=== PATIENT | male | born 1955 | race African-American/Black ===

== ENCOUNTER 2018-10-27 18:22 | Emergency (ER) | payer OTHER ==
[~2018-10-27] VITALS: Wt 79.6 kg
[2018-10-27] MEDS ORDERED: KETOROLAC 15 MG INJ IV STA (19:54)
[2018-10-27] MEDS ORDERED: SOD CHLORIDE 0.9% 500 ML IV STA (19:54)
[2018-10-27 22:10] VITALS: BP 138/81; PULSE 87; RESP 16
--- NOTE | 2018-10-27 22:49 | ERD ---
ER Documentation Chief Complaint Chief Complaint bib ra from home for abd. pain with urinary retention HPI This is a 63-year-old man complaining of suprapubic abdominal pain and distention beginning a few hours prior to arrival. Patient denies fevers or chills, no flank pain, no complaints of chest pain or shortness of breath. Nando contreras started using NSAIDs and cyclobenzaprine for recent sciatic back pain, but these are the only new medications. He denies previous episodes of urinary retention, denies hematuria, no weight loss, no vomiting or diarrhea. ROS All systems reviewed and are negative except as per history of present illness. Allergies Allergies: Coded Allergies: No Known Allergy (Unverified , 10/27/18) PMhx/Soc BPH Medical and Surgical Hx: pt denies Medical Hx, pt denies Surgical Hx History of Surgery: No Anesthesia Reaction: No Hx Neurological Disorder: No Hx Respiratory Disorders: No Hx Cardiac Disorders: No Hx Psychiatric Problems: No Hx Miscellaneous Medical Probl: No Hx Alcohol Use: Yes (OOC) Hx Substance Use: Yes (MJ) Hx Tobacco Use: No Smoking Status: Former smoker FmHx Family History: No diabetes Physical Exam Vitals Vital Signs Date Temp Pulse Resp B/P (MAP) Pulse Ox O2 O2 Flow FiO2 Time Delivery Rate 10/27/18 98.6 89 19 149/82 100 18:53 (104) Physical Exam Const: No acute distress, afebrile Head: Atraumatic Eyes: Normal Conjunctiva ENT: Normal External Ears, Nose and Mouth. Neck: Full range of motion. No meningismus. Resp: Clear to auscultation bilaterally Cardio: Regular rate and rhythm, no murmurs Abd: Soft, non tender, non distended. Positive suprapubic distention and tenderness to touch, no McBurney's point tenderness, no guarding or rigidity Skin: No petechiae or rashes Back: No midline or flank tenderness Ext: No cyanosis, or edema Neur: Awake and alert x3, no focal deficits or facial asymmetry Psych: Normal Mood and Affect Result Diagram: 10/27/18202910/27/182029 Results 24 hrs Laboratory Tests Test 10/27/18 20:30 White Blood Count 9.6 10^3/ul Red Blood Count 4.69 10^6/ul Hemoglobin 13.7 g/dl Hematocrit 40.7 % Mean Corpuscular Volume 86.8 fl Mean Corpuscular Hemoglobin 29.2 pg Mean Corpuscular Hemoglobin Concent 33.7 g/dl Red Cell Distribution Width 12.3 % Platelet Count 389 10^3/UL Mean Platelet Volume 9.1 fl Immature Granulocytes % 0.500 % Neutrophils % 73.9 % Lymphocytes % 17.5 % Monocytes % 7.7 % Eosinophils % 0.2 % Basophils % 0.2 % Nucleated Red Blood Cells % 0.0 /100WBC Immature Granulocytes # 0.050 10^3/ul Neutrophils # 7.1 10^3/ul Lymphocytes # 1.7 10^3/ul Monocytes # 0.7 10^3/ul Eosinophils # 0.0 10^3/ul Basophils # 0.0 10^3/ul Nucleated Red Blood Cells # 0.0 10^3/ul Urine Color STRAW Urine Clarity CLEAR Urine pH 6.0 Urine Specific [place] 1.003 Urine Ketones NEGATIVE mg/dL Urine Nitrite NEGATIVE mg/dL Urine Bilirubin NEGATIVE mg/dL Urine Urobilinogen NEGATIVE mg/dL Urine Leukocyte Esterase NEGATIVE Anitha/ul Urine Microscopic RBC 15 /HPF Urine Microscopic WBC 0 /HPF Urine Bacteria FEW /HPF Urine Hemoglobin 3+ mg/dL Urine Glucose NEGATIVE mg/dL Urine Total Protein NEGATIVE mg/dl Sodium Level 138 mmol/L Potassium Level 5.0 mmol/L Chloride Level 99 mmol/L Carbon Dioxide Level 28 mmol/L Anion Gap 11 Blood Urea Nitrogen 18 mg/dl Creatinine 1.60 mg/dl Est Glomerular Filtrat Rate mL/min 44 mL/min Glucose Level 104 mg/dl Calcium Level 10.0 mg/dl Total Bilirubin 0.3 mg/dl Direct Bilirubin 0.00 mg/dl Indirect Bilirubin 0.3 mg/dl Aspartate Amino Transf (AST/SGOT) 27 IU/L Alanine Aminotransferase (ALT/SGPT) 37 IU/L Alkaline Phosphatase 68 IU/L Total Protein 7.4 g/dl Albumin 4.4 g/dl Globulin 3.00 g/dl Albumin/Globulin Ratio 1.46 Lipase 460 U/L Current Medications Medications Dose Sig/David Start Time Status Last (Trade) Ordered Route PRN Stop Time Admin Dose Reason Admin Sodium 500 ml @ Q1H STAT 10/27/18 DC 10/27/18 Chloride 500 mls/hr IV 19:54 20:48 10/27/18 20:53 Ketorolac 15 mg ONCE STAT 10/27/18 DC 10/27/18 Tromethamine IV 19:54 20:48 (Toradol) 10/27/18 19:55 Procedures/MDM IV line was established patient was placed on cardiac care nurse rhythm strip r evealed a sinus rhythm at about 80 bpm with upright P and T waves. Patient was afebrile. Mendez catheter was placed and about 1 L of clear urine output was obtained, patient's pain immediately resolved and suprapubic distention resolved completely. I administered Toradol 15 mg IV x1 and 500 cc normal saline IV x1 CBC was normal, electrolytes revealed elevated creatinine consistent with recent urinary retention, liver function tests were normal, urinalysis was negative for infection Patient has no signs or symptoms of urinary tract infection and I will defer antibiotics, patient preferred to have the Mendez catheter removed. I removed the catheter and patient agreed to follow-up with his PMD tomorrow for reevaluation. Differential diagnoses considered, included but not limited to acute coronary syndrome, pulmonary embolism, aortic dissection, abdominal aortic aneurysm, sepsis, stroke, meningitis, encephalitis, pneumonia, appendicitis, cholecystitis, bowel obstruction, pyelonephritis, nephrolithiasis, cystitis, as well as metabolic, hematologic, and electrolyte abnormalities. As well as abscess, cellulitis, fractures, and dislocations. Patient feels much better at this time, and vital signs are normal, symptoms have improved. I did give strict instructions to return to the ED if symptoms continue or worsen, patient will otherwise follow-up with primary care physician. Patient understood instructions and agreed to plan. Disclaimer: Inadvertent spelling and grammatical errors are likely due to EHR/dictation software use and do not reflect on the overall quality of patient care. Also, please note that the electronic time recorded on this note does not necessarily reflect the actual time of the patient encounter. Departure Diagnosis: Primary Impression: Acute urinary retention Additional Impression: BPH (benign prostatic hyperplasia) Lower urinary tract symptom presence: symptoms present Lower urinary tract symptom detail: incomplete bladder emptying Qualified Codes: N40.1 - Benign prostatic hyperplasia with lower urinary tract symptoms; R39.14 - Feeling of incomplete bladder emptying Condition: Good Patient Instructions: Bph (Enlarged Prostate), Urinary Retention, Male KURT YUAN MD Oct 27, 2018 22:48
== END 2018-10-28 00:14 | disposition home or self-care (01) ==
LOC: E/R 18:22
DX: N40.1 Benign prostatic hyperplasia with lower urinary tract symptoms (principal)
CPT/HCPCS: 36415; 51702; 80053; 81001; 83690; 85025; 96374; J1885; J7040; Z7502